=== PATIENT | male | born 1970 | race Caucasian/White ===

== ENCOUNTER 2016-08-17 19:06 | Inpatient (IN) | payer OTHER ==
[~2016-08-17] VITALS: Ht 170.2 cm; Wt 87.2 kg
[2016-08-17] MEDS ORDERED: IV NORMAL SALINE 1,000ML 1,000 ML IV ONE (19:30)
--- NOTE | 2016-08-17 19:59 | EKG ---
[address] [address] Test Date: 2016-08-17 Test Time: 19:58:06 Pat Name: LENKA BURGER Department: Room: Gender: M Math Professor: : 1970 Requested By: SUZANNE SMITH Order Number: [id number] Reading MD: Measurements Intervals [place] Rate: 106 P: 33 RI: 136 QRS: 30 QRSD: 88 T: 35 QT: 294 QTc: 392 Interpretive Statements SINUS TACHYCARDIA LEFT ATRIAL ABNORMALITY QRS(T) CONTOUR ABNORMALITY CONSIDER ANTEROLATERAL MYOCARDIAL DAMAGE ABNORMAL ECG RI6.01 Unconfirmed report No previous ECG available for comparison
[2016-08-17] MEDS ORDERED: ONDANSETRON PF 4 MG/2 ML VIAL. IV ONE (20:00)
[2016-08-17] MEDS ORDERED: FENTANYL PF 100 MCG/2 ML VIAL. IV ONE (20:00)
--- NOTE | 2016-08-17 20:09 | RAD ---
PROCEDURE Right upper quadrant ultrasound. HISTORY Epigastric and right upper quadrant pain for 2 days. Post prandial pain. TECHNIQUE Right upper quadrant ultrasound was performed. COMPARISON None. FINDINGS Pancreas is obscured by bowel gas. IVC is patent where visualized. Liver is without discrete lesion, mildly increased in echogenicity diffusely. Hepatopetal flow is noted in the portal vein. Gallbladder is contracted, no definite stone pericholecystic fluid. Common bile duct is not dilated. Right kidney is without hydronephrosis or mass. IMPRESSION 1. Mild fatty infiltration of the liver. 2. Contracted gallbladder without stone. Electronically signed by: Rolando Hylton MD (Aug 17, 2016 20:08:29)
[2016-08-17 20:16] LABS: BASO # 0.1 x10^3/uL (0.0-0.2); BASO % 1 % (0-3); EOS # 0.6 x10^3/uL (0.0-0.7); EOS % 6 % (0-3); HEMATOCRIT 48.1 % (39.0-53.0); LYMPH # 2.7 x10^3/uL (1.0-4.8); LYMPH % 24 % (24-48); MEAN CORPUSCULAR HEMOGLOBIN 31 pg (25-35); MEAN CORPUSCULAR HGB CONC 33 g/dL (31-37); MEAN CORPUSCULAR VOLUME 94 fL (79-100); MONO # 1.1 x10^3/uL (0.0-1.1); MONO % 10 % (0-9); NEUT # 6.7 x10^3uL (1.8-7.7); NEUT % 60 % (31-73); PLATELET COUNT 187 x10^3/uL (140-400); RED CELL DISTRIBUTION WIDTH 12.3 % (11.5-14.5); WHITE BLOOD COUNT 11.3 x10^3/uL (4.0-11.0)
[2016-08-17 20:28] LABS: ALBUMIN 3.6 g/dL (3.4-5.0); ALBUMIN/GLOBULIN RATIO 0.9 (1.0-1.7); CALCIUM 9.2 mg/dL (8.5-10.1); CREATININE 1.1 mg/dL (0.7-1.3); GFR 71.8; TOTAL BILIRUBIN 0.4 mg/dL (0.2-1.0); TOTAL PROTEIN 7.4 g/dL (6.4-8.2)
[2016-08-17 20:29] LABS: POTASSIUM 3.9 mmol/L (3.5-5.1)
--- NOTE | 2016-08-17 21:37 | PHYS DOC ---
Past History Past Medical History: No Pertinent History Past Surgical History: Other Alcohol Use: None Drug Use: None Adult General Chief Complaint Chief Complaint: ABDOMINAL PAIN HPI HPI 45-year-old male presents with abdominal discomfort since eating a Gyro last Monday. He states the pain has waxed and waned but remained essentially constant. He definitely relates the onset of his pain to eating on Monday. He states he has not eaten much since then. He has been able to keep fluids down however. He has never had gallbladder issues in the past. [place] but the pain was so bad he needed to come to the emergency department tonight. He denies any melena or hematemesis.] Review of Systems Review of Systems Constitutional: Denies fever or chills [] Eyes: Denies change in visual acuity, redness, or eye pain [] HENT: Denies nasal congestion or sore throat [] Respiratory: Denies cough or shortness of breath [] Cardiovascular: No additional information not addressed in HPI [] GI: Per history of present illness [] : Denies dysuria or hematuria [] Musculoskeletal: Denies back pain or joint pain [] Integument: Denies rash or skin lesions [] Neurologic: Denies headache, focal weakness or sensory changes [] Endocrine: Denies polyuria or polydipsia [] Current Medications Current Medications Current Medications Medications (Trade) Dose Ordered Sig/Libertad Start Time Stop Time Status Last Admin Dose Admin Fentanyl Citrate (Fentanyl 2ml Vial) 50 mcg 1X ONCE 08/17/16 20:00 08/17/16 20:01 DC 08/17/16 20:10 50 MCG Ondansetron HCl (Zofran) 4 mg 1X ONCE 08/17/16 20:00 08/17/16 20:01 DC 08/17/16 20:09 4 MG Sodium Chloride (Iv Sodium Chloride 0.9% 1,000ml) 1,000 ml @ 1,000 mls/hr 1X ONCE 08/17/16 19:30 08/17/16 20:29 DC 08/17/16 20:09 1,000 MLS/HR Allergies Allergies Allergies Coded Allergies Type Severity Reaction Last Updated Verified No Known Allergies Allergy Unknown 08/17/16 Yes Physical Exam Physical Exam Constitutional: Well developed, well nourished, no acute distress, non-toxic appearance. [] HENT: Normocephalic, atraumatic, bilateral external ears normal, oropharynx moist, no oral exudates, nose normal. [] Eyes: PERRLA, EOMI, conjunctiva normal, no discharge. [] Neck: Normal range of motion, no tenderness, supple, no stridor. [] Cardiovascular:Heart rate regular rhythm, no murmur [] Lungs & Thorax: Bilateral breath sounds clear to auscultation [] Abdomen: Bowel sounds normal, soft, no tenderness, no masses, no pulsatile masses. [] Skin: Warm, dry, no erythema, no rash. [] Back: No tenderness, no CVA tenderness. [] Extremities: No tenderness, no cyanosis, no clubbing, ROM intact, no edema. [] Neurologic: Alert and oriented X 3, normal motor function, normal sensory function, no focal deficits noted. [] Psychologic: Affect normal, judgement normal, mood normal. [] Current Patient Data Vital Signs Vital Signs Date Time Temp Pulse Resp B/P Pulse Ox O2 Delivery O2 Flow Rate FiO2 08/17/16 20:10 20 95 Room Air 08/17/16 19:23 98.6 112 Lab Results Laboratory Tests Test 08/17/16 20:00 White Blood Count 11.3x10^3/uL (4.0-11.0) H Red Blood Count 5.10x10^6/uL (4.30-5.70) Hemoglobin 16.0g/dL (13.0-17.5) Hematocrit 48.1% (39.0-53.0) Mean Corpuscular Volume 94fL (79-100) Mean Corpuscular Hemoglobin 31pg (25-35) Mean Corpuscular Hemoglobin Concent 33g/dL (31-37) Red Cell Distribution Width 12.3% (11.5-14.5) Platelet Count 187x10^3/uL (140-400) Neutrophils (%) (Auto) 60% (31-73) Lymphocytes (%) (Auto) 24% (24-48) Monocytes (%) (Auto) 10% (0-9) H Eosinophils (%) (Auto) 6% (0-3) H Basophils (%) (Auto) 1% (0-3) Neutrophils # (Auto) 6.7x10^3uL (1.8-7.7) Lymphocytes # (Auto) 2.7x10^3/uL (1.0-4.8) Monocytes # (Auto) 1.1x10^3/uL (0.0-1.1) Eosinophils # (Auto) 0.6x10^3/uL (0.0-0.7) Basophils # (Auto) 0.1x10^3/uL (0.0-0.2) Sodium Level 143mmol/L (136-145) Potassium Level 3.9mmol/L (3.5-5.1) Chloride Level 106mmol/L (98-107) Carbon Dioxide Level 27mmol/L (21-32) Anion Gap 10 (6-14) Blood Urea Nitrogen 16mg/dL (8-26) Creatinine 1.1mg/dL (0.7-1.3) Estimated GFR (Cockcroft-Gault) 71.8 BUN/Creatinine Ratio 15 (6-20) Glucose Level 133mg/dL (70-99) H Calcium Level 9.2mg/dL (8.5-10.1) Total Bilirubin 0.4mg/dL (0.2-1.0) Aspartate Amino Transferase (AST) 16U/L (15-37) Alanine Aminotransferase (ALT) 24U/L (16-63) Alkaline Phosphatase 65U/L (46-116) Troponin I Quantitative < 0.017ng/mL (0-0.055) Total Protein 7.4g/dL (6.4-8.2) Albumin 3.6g/dL (3.4-5.0) Albumin/Globulin Ratio 0.9 (1.0-1.7) L Lipase 86123I/L (73-393) H EKG EKG EKG: Sinus tachycardia rate of [address]-T changes [] Radiology/Procedures Radiology/Procedures []PROCEDURE: ABD PELV W/ IV CONTRAST ONLY PROCEDURE CT abdomen and pelvis with contrast. HISTORY Upper abdominal pain for 4 days. TECHNIQUE Axial images and coronal and sagittal re-formatted images are provided. 75 milliliters of intravenous Omnipaque 300 was administered without complication. One or more of the following individualized dose reduction techniques were utilized for this exam: 1. Automated exposure control. 2. Adjustment of the mA and/or kV according to patient's size. 3. Use of iterative reconstruction technique. COMPARISON Ultrasound from earlier today. FINDINGS There is atelectasis in the lung bases. There is no pleural effusion. The heart is not enlarged. There is mild fatty infiltration of the liver. 5 millimeter low density lesion within the right hepatic lobe could represent small cyst. Gallbladder evaluation is limited given contracted state, grossly unremarkable. Spleen is not enlarged. Pancreas and adrenals are unremarkable. Kidneys are symmetrically perfused. There is no small bowel obstruction or mural thickening. Colon is grossly unremarkable. Normal appendix is noted. Lack of oral contrast limits evaluation of bowel. There is atheromatous disease in the abdominal aorta without aneurysm. Bladder is unremarkable. Prostate is not enlarged. Calcified phleboliths are noted. Bony structures are intact. IMPRESSION No acute abdominal findings. Impressions: PROCEDURE: ABDOMEN LTD PROCEDURE Right upper quadrant ultrasound. HISTORY Epigastric and right upper quadrant pain for 2 days. Post prandial pain. TECHNIQUE Right upper quadrant ultrasound was performed. COMPARISON None. FINDINGS Pancreas is obscured by bowel gas. IVC is patent where visualized. Liver is without discrete lesion, mildly increased in echogenicity diffusely. Hepatopetal flow is noted in the portal vein. Gallbladder is contracted, no definite stone pericholecystic fluid. Common bile duct is not dilated. Right kidney is without hydronephrosis or mass. IMPRESSION 1. Mild fatty infiltration of the liver. 2. Contracted gallbladder without stone. Course & Med Decision Making Course & Med Decision Making Pertinent Labs and Imaging studies reviewed. (See chart for details) [ED course: Evaluation reveals a 45-year-old male in moderate distress secondary to abdominal pain. CT scan and ultrasound both were unremarkable. Patient was noted to have an elevated lipase consistent with acute pancreatitis. I spoke with Dr. Fay who agreed to accept the patient for admission. Patient was given IV fluids and pain medicine during his stay in the [facility] permitting which did help alleviate his symptoms.] Dragon Disclaimer Dragon Disclaimer This chart was dictated in whole or in part using Voice Recognition software in a busy, high-work load, and often noisy Emergency Department environment. It may contain unintended and wholly unrecognized errors or omissions. Departure Departure: Impression: Primary Impression: Pancreatitis Disposition: 09 ADMITTED INPATIENT Admitting Physician: Giovana Fay Condition: GUARDED Referrals: GIOVANA IRENE MD (PCP) Problem Qualifiers Primary Impression: Pancreatitis Chronicity: acute Pancreatitis type: unspecified pancreatitis type Acute pancreatitis complication: unspecified Qualified Code: K85.90 - Acute pancreatitis without necrosis or infection, unspecified SUZANNE SMITH DO Aug 17, 2016 21:37
[2016-08-17] MEDS ORDERED: ONDANSETRON PF 4 MG/2 ML VIAL. IV PRN (21:45)
[2016-08-17] MEDS ORDERED: FENTANYL PF 100 MCG/2 ML VIAL. IV PRN (21:45)
[2016-08-17] MEDS ORDERED: IOHEXOL 300 MG/ML 75 ML VIAL. IV ONE (22:15)
[2016-08-17 22:18] LABS: BACTERIA,URINE 0 /HPF (0-FEW); BILIRUBIN,URINE NEG (NEG); CLARITY,URINE CLOUDY; COLOR,URINE YELLOW; GLUCOSE,URINE NEG (NEG); NITRITE,URINE NEG (NEG); RBC,URINE 0 /HPF (0-2); UROBILINOGEN,URINE 0.2 mg/dL (0.2 mg/dL); WBC,URINE 0 /HPF (0-4)
[2016-08-17 22:19] LABS: AMORPHOUS SEDIMENT,UR PRESENT /HPF
--- NOTE | 2016-08-17 22:24 | RAD ---
PROCEDURE CT abdomen and pelvis with contrast. HISTORY Upper abdominal pain for 4 days. TECHNIQUE Axial images and coronal and sagittal re-formatted images are provided. 75 milliliters of intravenous Omnipaque 300 was administered without complication. One or more of the following individualized dose reduction techniques were utilized for this exam: 1. Automated exposure control. 2. Adjustment of the mA and/or kV according to patient's size. 3. Use of iterative reconstruction technique. COMPARISON Ultrasound from earlier today. FINDINGS There is atelectasis in the lung bases. There is no pleural effusion. The heart is not enlarged. There is mild fatty infiltration of the liver. 5 millimeter low density lesion within the right hepatic lobe could represent small cyst. Gallbladder evaluation is limited given contracted state, grossly unremarkable. Spleen is not enlarged. Pancreas and adrenals are unremarkable. Kidneys are symmetrically perfused. There is no small bowel obstruction or mural thickening. Colon is grossly unremarkable. Normal appendix is noted. Lack of oral contrast limits evaluation of bowel. There is atheromatous disease in the abdominal aorta without aneurysm. Bladder is unremarkable. Prostate is not enlarged. Calcified phleboliths are noted. Bony structures are intact. IMPRESSION No acute abdominal findings. Electronically signed by: Rolando Hylton MD (Aug 17, 2016 22:22:43)
[2016-08-17] MEDS: IV NORMAL SALINE 1,000ML 1,000 ML IV SCH (22:31)
[2016-08-17 22:40] VITALS: BP 128/81
[2016-08-17 22:41] VITALS: BP 128/81
[2016-08-17] MEDS: MEROPENEM 1 GM in IV NORMAL SALINE 100ML 100 ML IV SCH (22:58)
--- NOTE | 2016-08-17 23:29 | NUR ---
Admission: 45 year old male, Max Hamilton, admitted to room 120 for pancreatitis. Pt was assisted onto the unit via gurney and accompanied by EMS personnel. Pt transferred self to bed. Vitals signs assessed, and oriented pt to the room. NS started at 150ml/hr. Pt assessed and plan of care reviewed. Pt currently resting in bed comfortable. Will continue to closely monitor.
--- NOTE | 2016-08-18 01:41 | ACF ---
Admission Criteria Forms PANCREATITIS Clinical Indications for Admission to Inpatient Care (Place 'X' for any and all applicable criteria): Admission is indicated for ANY ONE of the following (1)(2)(3)(4): [X]I. Acute pancreatitis[A] as indicated by 2 or more of the following: [X]a) Abdominal pain (eg, epigastric, left upper quadrant) [X]b) Serum amylase or serum lipase greater than 3 times the upper limit of normal [ ]c) Characteristic findings from abdominal imaging (eg, pancreatic inflammation, pancreatic necrosis, peripancreatic fluid collection)[B] [ ]II. Pancreatitis (acute or chronic ) requiring inpatient care as indicated by 1 or more of the following : [ ]a) Inability to maintain oral hydration Hypoxemia [ ]b) Evidence of infection (eg, fever, peripancreatic abscess) [ ]c) Severe pain requiring acute inpatient management [ ]d) Hemodynamic instability [ ]e) Hypoxemia [ ]f) Acute renal failure [ ]g) Severe electrolyte abnormalities Extended stay beyond goal length of stay may be needed for (1)(11) [ ]a) Severe acute pancreatitis (10)(19) [ ]b) Persistent symptoms, ascites, or pleural effusion [ ]c) Abdominal compartment syndrome (10) [ ]d) Late complications [ ]e) Acute renal failure (27) [ ]f) Gallstones in gallbladder The original [employer] content created by [employer] has been revised. The portions of the content which have been revised are identified through the use of italic text or in bold,and [facility] has neither reviewed nor approved the modified material.All other unmodified content is copyright [employer]. Please see references footnoted in the original [employer] edition 2016 Admission Criteria Met?: Yes CARLOS TONEY Aug 18, 2016 01:40
[2016-08-18] MEDS: IV NORMAL SALINE 1,000ML 1,000 ML IV SCH ×4 (05:29→18:45)
[2016-08-18] MEDS: MEROPENEM 1 GM in IV NORMAL SALINE 100ML 100 ML IV SCH (05:29)
[2016-08-18 05:37] VITALS: BP 101/66
[2016-08-18 05:58] LABS: HEMATOCRIT 44.7 % (39.0-53.0); HEMOGLOBIN 15.1 g/dL (13.0-17.5); RED BLOOD COUNT 4.74 x10^6/uL (4.30-5.70); RED CELL DISTRIBUTION WIDTH 12.4 % (11.5-14.5); WHITE BLOOD COUNT 11.2 x10^3/uL (4.0-11.0)
[2016-08-18 06:19] LABS: ALBUMIN/GLOBULIN RATIO 0.9 (1.0-1.7); CALCIUM 8.4 mg/dL (8.5-10.1); CREATININE 1.1 mg/dL (0.7-1.3); GFR 71.8; POTASSIUM 4.1 mmol/L (3.5-5.1); TOTAL BILIRUBIN 0.6 mg/dL (0.2-1.0); TOTAL PROTEIN 6.5 g/dL (6.4-8.2)
--- NOTE | 2016-08-18 09:51 | PDOC1 ---
History of Present Illness Reason for Visit: Abdominal pain History of Present Illness Pt presented to ER last night w/ c/o abdominal pain. He started having pain a few days ago about 30 minutes after eating a Gyro for lunch. He denies vomiting or diarrhea. He saw his doctor and a sonogram was ordered, but pt was told to go to ER if pain got worse. Pt had normal CT and sono in ER. No hx of alcohol abuse. States he has had cholesterol checked before and his triglycerides have never been high. He does not take any regular medications. He does smoke, 25 pack/year hx. Denies family history of GI illness or cancer. Pt states that he is feeling a lot better this morning. No vomiting. Pain is improved. Denies CP or SOA. No fever. Chief Complaint: ABDOMINAL PAIN Allergies: Coded Allergies: No Known Allergies (Verified Allergy, Unknown, 08/17/16) Past Medical History Cardiac: No pertinent hx Pulmonary: Asthma Past Surgical History: Other (Rotator cuff repair, eye surgery) Family History: Other (Negative for gallbladder disease, cancer, or blood clots ) Past Social History Smoke: # pack years (25) Alcohol: rare Drugs: None Review of Systems Review Of Systems Fourteen system , review of systems has been reviewed. See HPI for pertinent positives and negative responses, other marin all other systems are negative, non pertinent or non contributory Constitutional: No: Chills, Fever, Sweats, Weakness Eyes: No: Blurry vision, Double vision, Eye Pain ENT: No: Ear pain, Mouth pain, Nose pain Respiratory: No: Cough, Shortness of breath, Tachypnea Cardiovascular: No: Chest Pain, Edema, Palpitations Gastrointestinal: YES: Abdominal Pain, No: Constipation, Diarrhea, Hematochezia, Melena, Nausea, Vomiting Genitourinary: No: Dysuria, Henaturia, Nocturia Musculoskeletal: No: Joint Swelling, Muscular Weakness SKIN: YES: Dry, No Rashes, Warm Neurological: No: Confusion, Dizziness, Headaches, Memory Loss, Numbness/ Tingling, Speech Problems, Tremors, Visual Changes, Weakness Allergies: Coded Allergies: No Known Allergies (Verified Allergy, Unknown, 08/17/16) Medications Current Medications Sodium Chloride (Iv Sodium Chloride 0.9% 1,000ml) 1,000 ml @ 1,000 mls/hr 1X ONCE IV Last administered on 3/22/17at 20:09; Start 08/17/16 at 19:30; Stop at 20:29; Status DC Ondansetron HCl (Zofran) 4 mg 1X ONCE IV Last administered on 08/17/16 20:09 ; Start 08/17/16 at 20:00; Stop 08/17/16 at 20:01; Status DC Fentanyl Citrate (Fentanyl 2ml Vial) 50 mcg 1X ONCE IV Last administered on 20:10; Start 08/17/16 at 20:00; Stop 08/17/16 at 20:01; Status DC Ondansetron HCl (Zofran) 4 mg PRN Q4HRS PRN IV NAUSEA/VOMITING Last administered on 08/17/16 21:54; Start 08/17/16 at 21:45; Stop 08/18/16 at 21:44 Fentanyl Citrate 50 mcg 50 mcg PRN Q2HR PRN IV PAIN Last administered on 21:54; Start 08/17/16 at 21:45; Stop 08/18/16 at 21:44 Sodium Chloride (Iv Sodium Chloride 0.9% 1,000ml) 1,000 ml @ 150 mls/hr Q6H40M IV Last administered on 08/18/16 05:29; Start 08/17/16 at 21:37; Stop at 21:36 Iohexol 75 ml 75 ml 1X ONCE IV Last administered on 08/17/16 21:59; Start at 22:15; Stop 08/17/16 at 22:16; Status DC Meropenem/Sodium Chloride (Merrem/Iv Sodium Chloride 0.9% 100ml) 100 ml @ 200 mls/hr Q8HRS IV Last administered on 08/18/16 05:29; Start 08/17/16 at 23:00 Exam Vital Signs Vital Signs Date Time Temp Pulse Resp B/P Pulse Ox O2 Delivery O2 Flow Rate FiO2 08/18/16 05:37 98.3 97 18 101/66 93 Room Air General Appearance: Alert, Oriented X3, Cooperative, No acute distress HEENT: Atraumatic, PERRLA, EOMI, Mucous membr. moist/pink, Other (Neck supple, full ROM, no JVD, no LAD. ) Respiratory: Clear to auscultation, Normal air movement Heart: Regular rate, Normal S1, Normal S2, No murmurs Abdominal: Normal bowel sounds, Soft, No hepatospenomegaly, No masses, Other ( Mild epigastric TTP, no rebound/guarding) Extremities: No edema, Normal pulses, No tenderness/swelling Skin: No rashes, No breakdown Neuro: Normal speech, Strength at 5/5 X4 ext, Normal tone, Sensation intact, Cranial nerves 3-12 NL, Reflexes 2+ Psych/Mental Status: Mental status NL, Mood NL Assessment/Plan Assessment/Plan 1. Acute pancreatitis: Etiology unclear. Pt reports sx's started after eating a Gyro, but other than the GB being contracted, there are no stones noted. A HIDA scan may be appropriate as an outpatient, or possibly MRI of the abdomen if sx's recur. Check lipids. Continue IVF. Lipase improved. Advance to clear liquids today, hoping for d/c tomorrow if pt cont to improve. 2. DVT proph: Pt is low risk. Encourage ambulation TID. COURSE Allergies Coded Allergies Type Severity Reaction Last Updated Verified No Known Allergies Allergy Unknown 08/17/16 Yes Laboratory Tests Test 08/17/16 20:00 08/17/16 21:50 08/18/16 05:41 White Blood Count 11.3x10^3/uL (4.0-11.0) 11.2x10^3/uL (4.0-11.0) Red Blood Count 5.10x10^6/uL (4.30-5.70) 4.74x10^6/uL (4.30-5.70) Hemoglobin 16.0g/dL (13.0-17.5) 15.1g/dL (13.0-17.5) Hematocrit 48.1% (39.0-53.0) 44.7% (39.0-53.0) Mean Corpuscular Volume 94fL (79-100) 94fL (79-100) Mean Corpuscular Hemoglobin 31pg (25-35) 32pg (25-35) Mean Corpuscular Hemoglobin Concent 33g/dL (31-37) 34g/dL (31-37) Red Cell Distribution Width 12.3% (11.5-14.5) 12.4% (11.5-14.5) Platelet Count 187x10^3/uL (140-400) 167x10^3/uL (140-400) Neutrophils (%) (Auto) 60% (31-73) Lymphocytes (%) (Auto) 24% (24-48) Monocytes (%) (Auto) 10% (0-9) Eosinophils (%) (Auto) 6% (0-3) Basophils (%) (Auto) 1% (0-3) Neutrophils # (Auto) 6.7x10^3uL (1.8-7.7) Lymphocytes # (Auto) 2.7x10^3/uL (1.0-4.8) Monocytes # (Auto) 1.1x10^3/uL (0.0-1.1) Eosinophils # (Auto) 0.6x10^3/uL (0.0-0.7) Basophils # (Auto) 0.1x10^3/uL (0.0-0.2) Sodium Level 143mmol/L (136-145) 143mmol/L (136-145) Potassium Level 3.9mmol/L (3.5-5.1) 4.1mmol/L (3.5-5.1) Chloride Level 106mmol/L (98-107) 107mmol/L (98-107) Carbon Dioxide Level 27mmol/L (21-32) 26mmol/L (21-32) Anion Gap 10 (6-14) 10 (6-14) Blood Urea Nitrogen 16mg/dL (8-26) 11mg/dL (8-26) Creatinine 1.1mg/dL (0.7-1.3) 1.1mg/dL (0.7-1.3) Estimated GFR (Cockcroft-Gault) 71.8 71.8 BUN/Creatinine Ratio 15 (6-20) 10 (6-20) Glucose Level 133mg/dL (70-99) 110mg/dL (70-99) Calcium Level 9.2mg/dL (8.5-10.1) 8.4mg/dL (8.5-10.1) Magnesium Level 2.2mg/dL (1.8-2.4) 2.0mg/dL (1.8-2.4) Total Bilirubin 0.4mg/dL (0.2-1.0) 0.6mg/dL (0.2-1.0) Aspartate Amino Transf (AST/SGOT) 16U/L (15-37) 11U/L (15-37) Alanine Aminotransferase (ALT/SGPT) 24U/L (16-63) 23U/L (16-63) Alkaline Phosphatase 65U/L (46-116) 55U/L (46-116) Troponin I Quantitative < 0.017ng/mL (0-0.055) Total Protein 7.4g/dL (6.4-8.2) 6.5g/dL (6.4-8.2) Albumin 3.6g/dL (3.4-5.0) 3.0g/dL (3.4-5.0) Albumin/Globulin Ratio 0.9 (1.0-1.7) 0.9 (1.0-1.7) Lipase 87842V/L (73-393) 2938U/L (73-393) Urine Collection Type Unknown Urine Color Yellow Urine Clarity Cloudy Urine pH 8.0 Urine Specific [place] 1.015 Urine Protein Neg (NEG-TRACE) Urine Glucose (UA) Negmg/dL (NEG) Urine Ketones (Stick) Negmg/dL (NEG) Urine Blood Neg (NEG) Urine Nitrite Neg (NEG) Urine Bilirubin Neg (NEG) Urine Urobilinogen Dipstick 0.2mg/dL (0.2 mg/dL) Urine Leukocyte Esterase Neg (NEG) Urine RBC 0/HPF (0-2) Urine WBC 0/HPF (0-4) Urine Squamous Epithelial Cells None/LPF Urine Amorphous Sediment Present/HPF Urine Bacteria 0/HPF (0-FEW) Current Medications Medications (Trade) Dose Ordered Sig/Libertad Route PRN Reason Start Time Stop Time Status Last Admin Dose Admin Sodium Chloride (Iv Sodium Chloride 0.9% 1,000ml) 1,000 ml @ 1,000 mls/hr 1X ONCE IV 08/17/16 19:30 08/17/16 20:29 DC 08/17/16 20:09 Ondansetron HCl (Zofran) 4 mg 1X ONCE IV 08/17/16 20:00 08/17/16 20:01 DC 08/17/16 20:09 Fentanyl Citrate (Fentanyl 2ml Vial) 50 mcg 1X ONCE IV 08/17/16 20:00 08/17/16 20:01 DC 08/17/16 20:10 Ondansetron HCl (Zofran) 4 mg PRN Q4HRS PRN IV NAUSEA/VOMITING 08/17/16 21:45 08/18/16 21:44 08/17/16 21:54 Fentanyl Citrate 50 mcg 50 mcg PRN Q2HR PRN IV PAIN 08/17/16 21:45 08/18/16 21:44 08/17/16 21:54 Sodium Chloride (Iv Sodium Chloride 0.9% 1,000ml) 1,000 ml @ 150 mls/hr Q6H40M IV 08/17/16 21:37 08/18/16 21:36 08/18/16 05:29 Iohexol 75 ml 75 ml 1X ONCE IV 08/17/16 22:15 08/17/16 22:16 DC 08/17/16 21:59 Meropenem/Sodium Chloride (Merrem/Iv Sodium Chloride 0.9% 100ml) 100 ml @ 200 mls/hr Q8HRS IV 08/17/16 23:00 08/18/16 05:29 I & O 08/18/16 00:00 Intake Total 1200 ml Balance 1200 ml Vital Signs Date Time Temp Pulse Resp B/P Pulse Ox O2 Delivery O2 Flow Rate FiO2 08/18/16 05:37 98.3 97 18 101/[address] abdomen and pelvis with contrast. HISTORY Upper abdominal pain for 4 days. TECHNIQUE Axial images and coronal and sagittal re-formatted images are provided. 75 milliliters of intravenous Omnipaque 300 was administered without complication. One or more of the following individualized dose reduction techniques were utilized for this exam: 1. Automated exposure control. 2. Adjustment of the mA and/or kV according to patient's size. 3. Use of iterative reconstruction technique. COMPARISON Ultrasound from earlier today. FINDINGS There is atelectasis in the lung bases. There is no pleural effusion. The heart is not enlarged. There is mild fatty infiltration of the liver. 5 millimeter low density lesion within the right hepatic lobe could represent small cyst. Gallbladder evaluation is limited given contracted state, grossly unremarkable. Spleen is not enlarged. Pancreas and adrenals are unremarkable. Kidneys are symmetrically perfused. There is no small bowel obstruction or mural thickening. Colon is grossly unremarkable. Normal appendix is noted. Lack of oral contrast limits evaluation of bowel. There is atheromatous disease in the abdominal aorta without aneurysm. Bladder is unremarkable. Prostate is not enlarged. Calcified phleboliths are noted. Bony structures are intact. IMPRESSION No acute abdominal findings. PROCEDURE Right upper quadrant ultrasound. HISTORY Epigastric and right upper quadrant pain for 2 days. Post prandial pain. TECHNIQUE Right upper quadrant ultrasound was performed. COMPARISON None. FINDINGS Pancreas is obscured by bowel gas. IVC is patent where visualized. Liver is without discrete lesion, mildly increased in echogenicity diffusely. Hepatopetal flow is noted in the portal vein. Gallbladder is contracted, no definite stone pericholecystic fluid. Common bile duct is not dilated. Right kidney is without hydronephrosis or mass. IMPRESSION 1. Mild fatty infiltration of the liver. 2. Contracted gallbladder without stone. JANNETH CORMIER MD Aug 18, 2016 09:51
[2016-08-18] MEDS ORDERED: MORPHINE SULFATE 2 MG/ML DISP.SYRIN. IV PRN (10:00)
[2016-08-18] MEDS ORDERED: ONDANSETRON PF 4 MG/2 ML VIAL. IV PRN (10:00)
[2016-08-18 10:22] VITALS: BP 103/69
[2016-08-18] MEDS ORDERED: ACETAMINOPHEN 500 MG TABLET PO PRN (12:30)
[2016-08-18 14:27] VITALS: BP 103/71
[2016-08-18 19:20] VITALS: BP 113/75
[2016-08-18 22:35] VITALS: BP 104/72
[2016-08-19 01:07] LABS: HEMOGLOBIN A1C 5.6 % (4.8-5.6)
[2016-08-19] MEDS: IV NORMAL SALINE 1,000ML 1,000 ML IV SCH (03:29)
[2016-08-19 05:35] VITALS: BP 109/72
[2016-08-19 05:48] LABS: BASO # 0.1 x10^3/uL (0.0-0.2); BASO % 1 % (0-3); EOS # 0.7 x10^3/uL (0.0-0.7); EOS % 8 % (0-3); HEMATOCRIT 43.6 % (39.0-53.0); HEMOGLOBIN 14.7 g/dL (13.0-17.5); LYMPH % 33 % (24-48); MEAN CORPUSCULAR HEMOGLOBIN 32 pg (25-35); MEAN CORPUSCULAR HGB CONC 34 g/dL (31-37); MEAN CORPUSCULAR VOLUME 94 fL (79-100); MONO # 0.8 x10^3/uL (0.0-1.1); MONO % 8 % (0-9); NEUT # 4.7 x10^3uL (1.8-7.7); NEUT % 51 % (31-73); PLATELET COUNT 163 x10^3/uL (140-400); RED BLOOD COUNT 4.62 x10^6/uL (4.30-5.70); RED CELL DISTRIBUTION WIDTH 12.5 % (11.5-14.5); WHITE BLOOD COUNT 9.3 x10^3/uL (4.0-11.0)
[2016-08-19 06:04] LABS: ALBUMIN 2.8 g/dL (3.4-5.0); ALBUMIN/GLOBULIN RATIO 0.8 (1.0-1.7); CALCIUM 8.1 mg/dL (8.5-10.1); GFR 80.1; TOTAL BILIRUBIN 0.5 mg/dL (0.2-1.0); TOTAL PROTEIN 6.1 g/dL (6.4-8.2)
[2016-08-19] MEDS ORDERED: ONDA8TAB12 PO (10:53)
--- NOTE | 2016-08-19 10:55 | DISCH ---
DISCHARGE INSTRUCTIONS-DC Condition on Discharge Condition on Discharge: Stable Problems: Activity after Discharge Activity Instructions for Disc: Activity as tolerated Diet after Discharge Diet after Discharge: [place] (Advance to regular slowly as tolerated) Contacting the DROsmar after DC Call your doctor for: If your condition worsens Follow-Up Follow up with: PCP in 1 week JANNETH CORMIER MD Aug 19, 2016 10:55
[2016-08-19 10:58] VITALS: BP 118/72
--- NOTE | 2016-08-19 11:06 | PDOC3 ---
Discharge Summary Discharge Summary Date of Admission Date of Admission: Aug 17, 2016 at 21:39 Admitting Diagnosis Acute pancreatitis Date of Discharge: Aug 19, 2016 Discharge Diagnosis Acute pancreatitis Laboratory Findings Laboratory Tests Test 08/17/16 20:00 08/17/16 21:50 08/18/16 05:41 08/18/16 05:46 White Blood Count 11.3x10^3/uL (4.0-11.0) 11.2x10^3/uL (4.0-11.0) Red Blood Count 5.10x10^6/uL (4.30-5.70) 4.74x10^6/uL (4.30-5.70) Hemoglobin 16.0g/dL (13.0-17.5) 15.1g/dL (13.0-17.5) Hematocrit 48.1% (39.0-53.0) 44.7% (39.0-53.0) Mean Corpuscular Volume 94fL (79-100) 94fL (79-100) Mean Corpuscular Hemoglobin 31pg (25-35) 32pg (25-35) Mean Corpuscular Hemoglobin Concent 33g/dL (31-37) 34g/dL (31-37) Red Cell Distribution Width 12.3% (11.5-14.5) 12.4% (11.5-14.5) Platelet Count 187x10^3/uL (140-400) 167x10^3/uL (140-400) Neutrophils (%) (Auto) 60% (31-73) Lymphocytes (%) (Auto) 24% (24-48) Monocytes (%) (Auto) 10% (0-9) Eosinophils (%) (Auto) 6% (0-3) Basophils (%) (Auto) 1% (0-3) Neutrophils # (Auto) 6.7x10^3uL (1.8-7.7) Lymphocytes # (Auto) 2.7x10^3/uL (1.0-4.8) Monocytes # (Auto) 1.1x10^3/uL (0.0-1.1) Eosinophils # (Auto) 0.6x10^3/uL (0.0-0.7) Basophils # (Auto) 0.1x10^3/uL (0.0-0.2) Sodium Level 143mmol/L (136-145) 143mmol/L (136-145) Potassium Level 3.9mmol/L (3.5-5.1) 4.1mmol/L (3.5-5.1) Chloride Level 106mmol/L (98-107) 107mmol/L (98-107) Carbon Dioxide Level 27mmol/L (21-32) 26mmol/L (21-32) Anion Gap 10 (6-14) 10 (6-14) Blood Urea Nitrogen 16mg/dL (8-26) 11mg/dL (8-26) Creatinine 1.1mg/dL (0.7-1.3) 1.1mg/dL (0.7-1.3) Estimated GFR (Cockcroft-Gault) 71.8 71.8 BUN/Creatinine Ratio 15 (6-20) 10 (6-20) Glucose Level 133mg/dL (70-99) 110mg/dL (70-99) Calcium Level 9.2mg/dL (8.5-10.1) 8.4mg/dL (8.5-10.1) Magnesium Level 2.2mg/dL (1.8-2.4) 2.0mg/dL (1.8-2.4) Total Bilirubin 0.4mg/dL (0.2-1.0) 0.6mg/dL (0.2-1.0) Aspartate Amino Transf (AST/SGOT) 16U/L (15-37) 11U/L (15-37) Alanine Aminotransferase (ALT/SGPT) 24U/L (16-63) 23U/L (16-63) Alkaline Phosphatase 65U/L (46-116) 55U/L (46-116) Troponin I Quantitative < 0.017ng/mL (0-0.055) Total Protein 7.4g/dL (6.4-8.2) 6.5g/dL (6.4-8.2) Albumin 3.6g/dL (3.4-5.0) 3.0g/dL (3.4-5.0) Albumin/Globulin Ratio 0.9 (1.0-1.7) 0.9 (1.0-1.7) Lipase 26351T/L (73-393) 2938U/L (73-393) Urine Collection Type Unknown Urine Color Yellow Urine Clarity Cloudy Urine pH 8.0 Urine Specific [place] 1.015 Urine Protein Neg (NEG-TRACE) Urine Glucose (UA) Negmg/dL (NEG) Urine Ketones (Stick) Negmg/dL (NEG) Urine Blood Neg (NEG) Urine Nitrite Neg (NEG) Urine Bilirubin Neg (NEG) Urine Urobilinogen Dipstick 0.2mg/dL (0.2 mg/dL) Urine Leukocyte Esterase Neg (NEG) Urine RBC 0/HPF (0-2) Urine WBC 0/HPF (0-4) Urine Squamous Epithelial Cells None/LPF Urine Amorphous Sediment Present/HPF Urine Bacteria 0/HPF (0-FEW) Hemoglobin A1c 5.6% (4.8-5.6) Triglycerides Level 97mg/dL (0-150) Cholesterol Level 176mg/dL (0-200) LDL Cholesterol, Calculated 110mg/dL (0-100) VLDL Cholesterol, Calculated 19mg/dL (0-40) HDL Cholesterol 47mg/dL (40-60) Cholesterol/HDL Ratio 3.0 Test 08/19/16 05:39 White Blood Count 9.3x10^3/uL (4.0-11.0) Red Blood Count 4.62x10^6/uL (4.30-5.70) Hemoglobin 14.7g/dL (13.0-17.5) Hematocrit 43.6% (39.0-53.0) Mean Corpuscular Volume 94fL (79-100) Mean Corpuscular Hemoglobin 32pg (25-35) Mean Corpuscular Hemoglobin Concent 34g/dL (31-37) Red Cell Distribution Width 12.5% (11.5-14.5) Platelet Count 163x10^3/uL (140-400) Neutrophils (%) (Auto) 51% (31-73) Lymphocytes (%) (Auto) 33% (24-48) Monocytes (%) (Auto) 8% (0-9) Eosinophils (%) (Auto) 8% (0-3) Basophils (%) (Auto) 1% (0-3) Neutrophils # (Auto) 4.7x10^3uL (1.8-7.7) Lymphocytes # (Auto) 3.0x10^3/uL (1.0-4.8) Monocytes # (Auto) 0.8x10^3/uL (0.0-1.1) Eosinophils # (Auto) 0.7x10^3/uL (0.0-0.7) Basophils # (Auto) 0.1x10^3/uL (0.0-0.2) Sodium Level 145mmol/L (136-145) Potassium Level 4.0mmol/L (3.5-5.1) Chloride Level 109mmol/L (98-107) Carbon Dioxide Level 27mmol/L (21-32) Anion Gap 9 (6-14) Blood Urea Nitrogen 8mg/dL (8-26) Creatinine 1.0mg/dL (0.7-1.3) Estimated GFR (Cockcroft-Gault) 80.1 BUN/Creatinine Ratio 8 (6-20) Glucose Level 91mg/dL (70-99) Calcium Level 8.1mg/dL (8.5-10.1) Total Bilirubin 0.5mg/dL (0.2-1.0) Aspartate Amino Transf (AST/SGOT) 14U/L (15-37) Alanine Aminotransferase (ALT/SGPT) 21U/L (16-63) Alkaline Phosphatase 51U/L (46-116) Total Protein 6.1g/dL (6.4-8.2) Albumin 2.8g/dL (3.4-5.0) Albumin/Globulin Ratio 0.8 (1.0-1.7) Lipase 1072U/L (73-393) Hospital Course Pt was admitted through ER w/ acute pancreatitis. Initial lipase was in the 11, 000 range. LFT's were otherwise normal, and abdominal sono as well as abdominal CT were negative. Lipids were unremarkable, trig's were normal. Pt does not have hx of alcohol use. Pt reports sx's started after eating a Gyro for lunch. He was treated w/ IV fluids, bowel rest, and slow advancement of diet. He has done well, and his lipase today was 1072. I have advised him to f /u closely w/ his PCP, and see if any other testing is indicated (such as MRI of abdomen or MRCP) to investigate why he got pancreatitis. Pt tolerated a bland diet prior to discharge. Exam: PERRLA, sclerae anicteric CV: RRR, no m/r/g Chest: CTAB Abd: Soft, NTTP, BS+, no masses Ext: No swelling, Joanne's negative bilaterally. Treatment IVF, IV pain meds, anti-emetics Condition at Discharge: Stable Inpatient Meds Current Medications Sodium Chloride (Iv Sodium Chloride 0.9% 1,000ml) 1,000 ml @ 1,000 mls/hr 1X ONCE IV Last administered on 08/17/16 20:09; Start 08/17/16 at 19:30; Stop at 20:29; Status DC Ondansetron HCl (Zofran) 4 mg 1X ONCE IV Last administered on 08/17/16 20:09 ; Start 08/17/16 at 20:00; Stop 08/17/16 at 20:01; Status DC Fentanyl Citrate (Fentanyl 2ml Vial) 50 mcg 1X ONCE IV Last administered on 20:10; Start 08/17/16 at 20:00; Stop 08/17/16 at 20:01; Status DC Ondansetron HCl (Zofran) 4 mg PRN Q4HRS PRN IV NAUSEA/VOMITING Last administered on 08/17/16 21:54; Start 08/17/16 at 21:45; Stop 08/18/16 at 09:53 ; Status DC Fentanyl Citrate 50 mcg 50 mcg PRN Q2HR PRN IV PAIN Last administered on 21:54; Start 08/17/16 at 21:45; Stop 08/18/16 at 09:53; Status DC Sodium Chloride (Iv Sodium Chloride 0.9% 1,000ml) 1,000 ml @ 150 mls/hr Q6H40M IV Last administered on 08/18/16 05:29; Start 08/17/16 at 21:37; Stop at 12:30; Status DC Iohexol 75 ml 75 ml 1X ONCE IV Last administered on 08/17/16 21:59; Start at 22:15; Stop 08/17/16 at 22:16; Status DC Meropenem/Sodium Chloride (Merrem/Iv Sodium Chloride 0.9% 100ml) 100 ml @ 200 mls/hr Q8HRS IV Last administered on 08/18/16 05:29; Start 08/17/16 at 23:00; Stop 08/18/16 at 09:53; Status DC Ondansetron HCl (Zofran) 4 mg PRN Q6HRS PRN IV NAUSEA/VOMITING; Start 08/18/16 at 10:00 Morphine Sulfate (Morphine 2mg Syringe) 2 mg PRN Q2HR PRN IV PAIN; Start at 10:00 Acetaminophen 1000 mg 1,000 mg TID PRN PRN PO HEADACHE Last administered on 12:39; Start 08/18/16 at 12:30 Sodium Chloride (Iv Sodium Chloride 0.9% 1,000ml) 1,000 ml @ 100 mls/hr Q10H IV Last administered on 08/19/16 03:29; Start 08/18/16 at 12:30 Activity: as tolerated Diet: other ([place], advance slowly as tolerated) Follow-up Plan F/u with PCP in 1 week. JANNETH CORMIER MD Aug 19, 2016 10:56
--- NOTE | 2016-08-19 11:27 | NUR ---
Discharge Note: LENKA BURGER [address] Discharge instructions and discharge home medications reviewed with Patient and a copy given. All questions have been answered and understanding verbalized. The following instructions and handouts were given: Medications, follow up instructions, and educational handout given. Discontinued lines and drains: Peripheral IV discontinued with no complications. Patient discharged to home with family via ambulation.
== END 2016-08-19 11:29 | disposition home or self-care (01) | DRG 439 ==
LOC: ER 19:06 → 1 SOUTH 21:39
PROVIDERS: ADMIT Family Medicine; ATTEND Family Medicine
DX: K85.90 Acute pancreatitis without necrosis or infection, unspecified (principal); J98.11 Atelectasis; F17.200 Nicotine dependence, unspecified, uncomplicated; J45.909 Unspecified asthma, uncomplicated; K76.0 Fatty (change of) liver, not elsewhere classified
CPT/HCPCS: 36415; 74177; 76705; 80053; 80061; 81001; 83036; 83690; 83735; 84484; 85027; 93005; 96361; 96374; 96375; 99406; J2185; J2405; J3010; Q9967; 99285-25; J7030